=== PATIENT | male | born 1990 | race Caucasian/White ===

== ENCOUNTER 2016-11-15 10:59 | Emergency (ER) | payer MEDICAID ==
[~2016-11-15] VITALS: Ht 180.3 cm; Wt 100.0 kg
[2016-11-15 12:23] VITALS: BP 143/70
== END 2016-11-15 12:32 | disposition home or self-care (01) ==
LOC: ER 11:34
DX: G40.909 Epilepsy, unspecified, not intractable, without status epilepticus (principal); F15.10 Other stimulant abuse, uncomplicated; F17.210 Nicotine dependence, cigarettes, uncomplicated
CPT/HCPCS: 99284; Z7610